=== PATIENT | female | born 1985 | race Two or more races ===

== ENCOUNTER 2019-02-17 01:56 | Inpatient (IN) | payer MEDICAID ==
[~2019-02-17] VITALS: Ht 152.4 cm; Wt 77.1 kg
[2019-02-17] MEDS ORDERED: LACT. RINGERS/OXYTOCIN 20UNITS 1,000 ML IV SCH ×2 (02:29→04:39)
[2019-02-17] MEDS ORDERED: LACTATED RINGER'S 1,000 ML IV SCH (02:29)
[2019-02-17] MEDS ORDERED: METHYLERGONOVINE MALEATE 0.2 MG/ML AMP IM PRN (02:30)
[2019-02-17] MEDS ORDERED: LIDOCAINE 2%HCL (LOCAL ANESTH.) INJ 20ML MDV ID PRN (02:30)
[2019-02-17] MEDS ORDERED: PENICILLIN G POT 5MIL/D5 50ML 50 ML IV ONE ×2 (03:00)
[2019-02-17 03:16] LABS: Basophils # (auto) 0 uL; Basophils % (auto) 0.4 % (0.0-2.0); Eosinophils # (auto) 0.1 uL; Eosinophils % (auto) 1.7 % (0.0-7.0); Hematocrit 40.2 % (36.0-46.0); Hemoglobin 14.2 g/dL (12.2-16.2); Lymphocytes % (auto) 24.7 % (10.0-50.0); Mean Corpuscular Hemoglobin 30.6 pg (28.0-32.0); Mean Corpuscular Hgb Conc. 35.4 g/dL (32.0-36.0); Mean Corpuscular Volume 86.6 fL (80.0-100.0); Monocytes # (auto) 0.7 uL; Monocytes % (auto) 8.1 % (0.0-12.0); Neutrophils # (auto) 5.4 uL; Neutrophils % (auto) 65.1 % (37.0-80.0); Nucleated Red Blood Cells % 0.1 %; Platelet Count (auto) 220 10^3/uL (140-450); Red Blood Cells 4.64 10^6/uL (4.0-5.20); Red Cell Distribution Width 13.6 % (11.8-14.3); White Blood Cell 8.3 10^3/uL (4.4-10.8)
[2019-02-17] MEDS ORDERED: INSUINJ2 SC (03:27)
[2019-02-17 03:32] LABS: INR 0.82 (0.9-1.15); Partial Thromboplastin Time 25.7 sec (23.78-33.04); Prothrombin Time 8.9 sec (9.27-12.13)
[2019-02-17] MEDS: ACCU-CHEK COMFORT CURVE STRIP VI SCH ×2 (03:36→06:10)
[2019-02-17 03:37] LABS: Albumin 2.4 g/dL (3.4-5.0); BUN/Creatinine Ratio 23.3; Calcium 9.1 mg/dL (8.5-10.1); Potassium 3.9 mmol/L (3.5-5.1)
[2019-02-17 03:40] LABS: Bilirubin, Total 0.3 mg/dL (0.2-1.0); Total Protein 6.9 g/dL (6.4-8.2)
[2019-02-17] MEDS ORDERED: LACTATED RINGER'S 1,000 ML IV ONE (03:46)
[2019-02-17 03:49] LABS: Alcohol, Urine < 3.0 mg/dL (0-5); Amphetamine Screen, Urine NEGATIVE (NEGATIVE); Barbiturate Scree,Urine NEGATIVE (NEGATIVE); Benzodiazephine Screen, Urine NEGATIVE (NEGATIVE); Cannabinoid Screen, Urine NEGATIVE (NEGATIVE); Cocaine Screen, Urine NEGATIVE (NEGATIVE); Opiate Scree,Urine NEGATIVE (NEGATIVE); Phencyclidine Screen, Urine NEGATIVE (NEGATIVE)
[2019-02-17 03:55] LABS: Urine Bacteria FEW /hpf (None Seen); Urine Blood 1+ /uL (Negative); Urine Hyaline Cast FEW /lpf (0 - 2); Urine Specific Gravity 1.006 (1.001-1.035); Urine WBC 1 /hpf (0 - 5)
[2019-02-17] MEDS ORDERED: LIDOCAINE HCL 2 %PF INJ 10ML AMP IJ ONE (04:00)
[2019-02-17] MEDS ORDERED: ePHEDrine SULFATE 50 MG/ML AMP IV ONE (04:00)
[2019-02-17] MEDS ORDERED: NALOXONE HCL 0.4 MG/ML VIAL IV ONE (04:00)
[2019-02-17] MEDS ORDERED: fentaNYL W ROPIVACAINE 150 ML EPI SCH (04:00)
[2019-02-17] MEDS ORDERED: fentaNYL CITRATE 100 MCG/2 ML VL IV ONE (04:00)
[2019-02-17] MEDS ORDERED: TERBUTALINE SULFATE 1 MG/ML 1ML VIAL SC ONE (04:45)
[2019-02-17] MEDS: DERMOPLAST 60ML BOTTLE TOP PRN ×2 (04:46→10:08)
[2019-02-17] MEDS: PHISODERM TOP SOLN 240ML BTL TOP PRN ×2 (04:46→10:08)
[2019-02-17] MEDS: WITCH HAZEL-GLYCERIN PAD TOP PRN ×2 (04:47→10:08)
[2019-02-17] MEDS ORDERED: FERR-7 PO (04:49)
[2019-02-17] MEDS ORDERED: FOLI1TAB6 PO (04:49)
[2019-02-17] MEDS ORDERED: PREN27TA7 PO (04:49)
[2019-02-17] MEDS ORDERED: PENICILLIN G POTASSIUM 2,500,000 UNITS in D5W 5% 50 ML IV SCH (07:15)
[2019-02-17] MEDS: ACETAMINOPHEN 325 MG TAB PO PRN ×2 (10:02→20:17)
--- NOTE | 2019-02-17 10:20 | NUR ---
Ambulation: Patient OOB with standby assistance by RN. Patient ambulated to bathroom with steady gait. Patient able to void without difficulty 500ml. [facility] teaching provided with returned demonstration by patient. Clean gown provided and bed linen changed. Patient ambulated back to bed with steady gait and no distress noted.
[2019-02-17 11:00] VITALS: BP 113/57
--- NOTE | 2019-02-17 11:43 | NUR ---
PT REPORT RECEIVED FROM Jordana SCOTT ON STABLE PATIENT, NO S/S OF DISTRESS OR SOB NOTED, ASSUMING CARE.
--- NOTE | 2019-02-17 12:59 | NUR ---
PT REPORT GIVEN TO Jordana NAVA ON STABLE PATIENT, RELINQUISHED CARE. NO DISTRESS NOTED.
[2019-02-17 15:30] VITALS: BP 118/61
--- NOTE | 2019-02-17 15:30 | NUR ---
Teaching: Reviewed information in [facility] booklet with patient. Discussed benefits of and risks associated with not . Discussed different positions, proper latch, feeding cues, and baby-led . LATCHED ON. . All questions and concerns addressed at this time. Patient verbalized understanding of information.
[2019-02-17] MEDS: IBUPROFEN 600 MG TAB PO PRN (17:22)
[2019-02-17 19:00] VITALS: BP 98/56
[2019-02-17 23:00] VITALS: BP 97/47
[2019-02-18 02:31] VITALS: BP 103/56
[2019-02-18 06:45] VITALS: BP 125/68
--- NOTE | 2019-02-18 07:20 | NUR ---
Nathaniel MARLEY CNM MADE AWARE OF PTS TRENDING BLOOD GLUCOSE LEVELS, MOST RECENT LEVEL 69MG/DL. ORDERS RECEIVED FROM Nathaniel MARLEY TO DISCONTINUE BLOOD GLUCOSE CHECKS, DISCHARGE PT HOME AND TO FOLLOW UP WITH DR. HARRELL SCHEDULED IN 2 WEEKS. READ BACK AND VERIFIED ORDERS. WILL CARRY OUT.
[2019-02-18] MEDS: IBUPROFEN 600 MG TAB PO PRN (10:37)
--- NOTE | 2019-02-18 11:00 | NUR ---
Discharge: Discharge instructions given as ordered. Pt encouraged to follow up with TRANSITION MANAGER as instructed. All questions and concerns addressed. Patient verbalized understanding. Medication reconciliation completed and copy given to patient. Patient encouraged to prepare to depart unit.
[2019-02-18 11:10] VITALS: BP 128/74
--- NOTE | 2019-02-18 12:45 | NUR ---
Discharge: Patient taken to vehicle via wheelchair with all personal belongings, accompanied by staff and family member. No distress noted at time of departure, no adverse changes in status since initial assessment.
== END 2019-02-18 12:45 | disposition home or self-care (01) | DRG 560 ==
LOC: LDRP 01:56
PROVIDERS: ADMIT Specialist; ATTEND Specialist
PROC: 10E0XZZ Delivery of Products of Conception, External Approach (ICD-10-PCS; principal; 2019-02-17)
PROC: 0KQM0ZZ Repair Perineum Muscle, Open Approach (ICD-10-PCS; 2019-02-17)
PROC: 3E0R3BZ Introduction of Anesthetic Agent into Spinal Canal, Percutaneous Approach (ICD-10-PCS; 2019-02-17)
PROC: 00HU33Z Insertion of Infusion Device into Spinal Canal, Percutaneous Approach (ICD-10-PCS; 2019-02-17)
DX: O24.424 Gestational diabetes mellitus in childbirth, insulin controlled (principal); F53.0 Postpartum depression; Z37.0 Single live birth; O70.1 Second degree perineal laceration during delivery; Z3A.39 39 weeks gestation of pregnancy
CPT/HCPCS: 36415; 51702; 59025; 59409; 62282; 80053; 80307; 81001; 81002; 82947; 82962; 85025; 85610; 85730; 86592; 86850; 86900; 86901; 94762; 96361; 96365; 96366; G0378; J2540; J2590; J3010; J7060